=== PATIENT | female | born 1995 | race Caucasian/White ===

== ENCOUNTER 2021-02-07 11:01 | Outpatient (RCR) | payer BC, SELFPAY ==
[2021-02-07] MEDS: RHO(D) IMMUNE GLOBULIN 300 MCG/2 ML SYRINGE IM (16:12)
== END 2021-05-08 23:59 | disposition home or self-care (01) ==
LOC: ANHLAB 11:01
PROVIDERS: Visit Provider Student in an Organized Health Care Education/Training Program
DX: Z29.13 Encounter for prophylactic Rho(D) immune globulin (principal); O36.0190 Maternal care for anti-D [Rh] antibodies, unspecified trimester, not applicable or unspecified; Z3A.00 Weeks of gestation of pregnancy not specified
CPT/HCPCS: 36415; 85461; 90384; 96372; J2790

== ENCOUNTER 2021-04-04 00:15 | Inpatient (IN) | payer BC, SELFPAY ==
[2021-04-04] VITALS (154 sets, daily range): BP systolic 92–144; BP diastolic 52–108; PULSE 51–129; TEMP 36.4–37.1; O2SAT 69–100; BMI 25.7
--- NOTE | 2021-04-04 00:41 | LDADM ---
This patient, Irena Kohler, was admitted to Labor/Delivery/Recovery 104 on 04/04/21 at 00:15. Plans for labor, pain management and were discussed with patient. Patient/family oriented to hospital policies and general routines including ID bracelet, bed and alarms, visiting hours, pain management, procedures, bathroom and other care routines, personal items, smoking policy, room service/diet and guest tray routines, infant security routines, and visiting hours. Patient/Family are encouraged to report perceived risks to care and to ask questions if they do not understand what they are told or what they should do. See OBIX for further documentation.
[2021-04-04] MEDS: miSOPROStol 25 MCG TABLET VAGINAL ×2 (00:56→05:16)
[2021-04-04 00:59] LABS: Basophils Percent Auto 0.3 % (0.2-1.2); Eosinophils Absolute Auto 0.4 K/mm3 (0-0.3); Eosinophils Percent Auto 3.7 % (0-4.4); Hematocrit 35.4 % (37.0-47.0); Hemoglobin 12.3 g/dL (12.0-15.0); Immature Granulocyte Absolute 0.04 K/mm3 (0.00-0.031); Immature Granulocyte Percent A 0.4 % (0-0.5); Lymphocytes Absolute Auto 2.25 K/mm3 (0.9-3.2); Lymphocytes Percent Auto 19.8 % (18.3-44.2); Mean Corpuscular HGB Conc 34.7 g/dl (32-36); Mean Corpuscular Volume 92.2 fl (80-100); Mean Platelet Volume 10.4 fl (7.4-10.4); Monocytes Absolute Auto 0.8 K/mm3 (0.1-0.6); Monocytes Percent Auto 7.4 % (2.6-8.5); Neutrophils Absolute Auto 7.8 K/mm3 (1.3-6.7); Neutrophils Percent Auto 68.4 % (45.5-73.1); Platelet Count Result 191 k/mm3 (150-375); Red Blood Count 3.84 M/mm3 (4.2-5.4); Red Cell Distribution Width 12.4 % (11.5-14.5); White Blood Count 11.3 K/mm3 (4.5-10.0)
--- NOTE | 2021-04-04 07:13 | P.HPUP_ITS ---
History and Physical Update Update Date/Time: 04/04/21 07:13 25 yo at 39w3d who presents for elective IOL. she endorses good FM. she denies any regular contractions, vaginal bleeding or leakage of fluid. History and Physical has been reviewed, including an updated exam of the patien t. There are NO changes in the patient's condition. Risks, benefits, and alternatives have been discussed and questions answered. Patient agrees to proceed with procedure. A/P: 25 yo at 39w3d who presents for elective IOL admit to L&D routine admission orders Rh-, will need rhogam PP GBS neg FHT cat 1 plan for cytotec IOL continuous EFM
--- NOTE | 2021-04-04 09:15 | WPDANESEPP ---
Anes - Eval Pre Procedure Procedure: labor epidural Date/Time: 04/04/21 09:15 Pre Op Diagnosis: Induction Patient Data Age: 25 Gender: F Height: 1.7 m Weight: 74.5 kg Last Vital Signs Temp 36.7 C 04/04/21 07:30 Pulse 69 04/04/21 08:00 BP 129/85 04/04/21 08:00 Allergies Allergy/AdvReac Type Severity Reaction Status Date / Time No Known Allergies Allergy Mild Verified 11/05/10 15:28 Home Medications Medication Instructions Recorded Confirmed Type PNV cmb#95-ferrous fumarate-FA 1 tablet PO DAILY 03/10/21 03/10/21 History [] ergocalciferol (vitamin D2) 1,250 mcg PO WEEKLY 03/10/21 03/10/21 History [Vitamin D2] Laboratory Tests 04/04/21 04/04/21 04/04/21 00:48 00:48 00:48 WBC 11.3 K/mm3 H K/mm3 (4.5-10.0) RBC 3.84 M/mm3 L M/mm3 (4.2-5.4) Hgb 12.3 g/dL g/dL (12.0-15.0) Hct 35.4 % L % (37.0-47.0) MCV 92.2 fl fl (80-100) MCH 32.0 pg pg (26-34) MCHC 34.7 g/dl g/dl (32-36) RDW 12.4 % % (11.5-14.5) Plt Count 191 k/mm3 k/mm3 (150-375) MPV 10.4 fl fl (7.4-10.4) Immature Gran % (Auto) 0.4 % % (0-0.5) Neut % (Auto) 68.4 % % (45.5-73.1) Lymph % (Auto) 19.8 % % (18.3-44.2) [place] % (Auto) 7.4 % % (2.6-8.5) Eos % (Auto) 3.7 % % (0-4.4) Baso % (Auto) 0.3 % % (0.2-1.2) Lymph # (Auto) 2.25 K/mm3 K/mm3 (0.9-3.2) [place] # (Auto) 0.8 K/mm3 H K/mm3 (0.1-0.6) Eos # (Auto) 0.4 K/mm3 H K/mm3 (0-0.3) Baso # (Auto) 0.0 K/mm3 K/mm3 (0.0-0.1) Abs Immat Gran (auto) 0.04 K/mm3 H K/mm3 (0.00-0.031) Absolute Neuts (auto) 7.8 K/mm3 H K/mm3 (1.3-6.7) Absolute Nucleated RBC 0.0 K/mm3 K/mm3 (0.0-0.012) Nucleated RBC % 0.0 % % (0.0-0.2) RPR Pending Blood Type A Negative Antibody Screen Positive Antibody Identification Pending Antigen Identification Pending MINI, IgG Interpret Pending MINI, Poly Interpret Pending MINI, Complement Interp Pending Patient hx anesthesia problems: none Family hx anesthesia problems: none [facility] Family History Family History (Updated 03/10/21 @ 15:33 by Get López RN) Other No pertinent family history Social History Social History Smoking status: Never smoker Substance use: never Gender identity (if verbalized by the patient): Female Spiritual care concerns: No Exam Day of Procedure 04/04/21 09:15
--- NOTE | 2021-04-04 09:56 | PM.OBPNLAB ---
Pain Control Date/time seen: 04/04/21 09:56 Pain control: tolerating well Pelvic Exam Dilation (cm): 1 Effacement (%): 50 station: -3 Amniotic membrane status: Intact Contractions Contraction pattern: Regular Status status: Category l Assessment and Plan Assessment: induction ongoing Plan: begin patient augmentation (will start pitocin) Comments: cervical monahan catheter placed with 50 mL of saline. catheter put on traction
[2021-04-04] MEDS: LACTATED RINGERS 1,000 ML 125 ML IV CONT ×2 (10:03→13:39)
[2021-04-04 10:05] LABS: Rapid Plasma Reagin Non-Reactive (NonReactive)
[2021-04-04] MEDS: fentaNYL CITRATE INJ (*CRX) 100 MCG/2 ML VIAL 50 MCG IV PUSH (10:08)
--- NOTE | 2021-04-04 12:31 | PM.OBPNLAB ---
Pain Control Date/time seen: 04/04/21 12:31 Pelvic Exam Dilation (cm): 5 Effacement (%): 80 station: -3 Amniotic membrane status: Intact Contractions Contraction pattern: Regular Status status: Category l Assessment and Plan Assessment: induction ongoing Comments: AROM for clear fluid
[2021-04-04] MEDS: FAMOTIDINE 20 MG/2 ML VIAL IV PUSH (15:37)
--- NOTE | 2021-04-04 16:19 | PM.OBPNLAB ---
Pain Control Date/time seen: 04/04/21 16:19 Pain control: tolerating well and epidural Pelvic Exam Dilation (cm): 6 Effacement (%): 80 station: -2 Amniotic membrane status: Ruptured Contractions Contraction pattern: Regular Status status: Category ll Comments: recurrent late decels, mod variability, occasional acceleration Assessment and Plan Assessment: induction ongoing Comments: pitocin d/c for now, O2 supplementation being administered. will give IVF bolus. pt repositioned to right side with peanut ball. will continue to monitor.
[2021-04-04] MEDS: ONDANSETRON INJ 4 MG/2 ML VIAL IV PUSH (17:26)
--- NOTE | 2021-04-04 21:35 | PM.OBPRVD ---
OB - Delivery Note Procedure Procedure: Patient pushed for a spontaneous vaginal delivery. The fetus was delivered atraumatically and placed on the maternal abdomen. The cord was clamped and cut after 1 minute of life. The cord was double clamped and cut and a segment of cord was collected for cord gases. Cord blood was collected for blood type and Coomb's testing. The placenta delivered spontaneously and was noted to be intact. The perineum was inspected and there was a 1st degree perineal laceration. The laceration was repaired with 3-0 vicryl in the usual fashion. The uterus was firm and good hemostasis was noted. The patient and fetus were stable in the delivery room. Intrapartal events: None Induction method: per misoprostol protocol Delivery augmentation: rupture of membranes and pitocin Delivery monitor: external FHT Route of delivery: Episiotomy description: None Laceration Description: Perineal - 1st Degree Delivery repair: vicryl Specimen: No Quantitative Blood Loss (ml): 200 Anesthesia type: Epidural Disposition: floor () Complications: No immediate complications [place] Baby Date of : 04/04/21 Time of : 21:19 Weeks of gestation at delivery: 39 gender: Male Weight (pounds): 7 Weight (ounces): 12 presentation: vertex position: Right Occiput Anterior Placenta delivery description: Spontaneous cord vessel description: 3 Vessels score one minute: 8 score five minutes: 9
[2021-04-04] MEDS: OXYTOCIN 30 UNITS/NS 500 ML 30 UNITS/500 ML BAG 125 UNITS IV CONT (22:05)
[2021-04-04] MEDS: BENZOCAINE 20% AER SPR (*SP) 56 GM CAN 1 SPRAY TOPICAL (23:21)
[2021-04-04] MEDS: WITCH HAZEL 40 PADS 1 PAD TOPICAL (23:21)
[2021-04-04] MEDS: IBUPROFEN 600 MG TABLET PO (23:22)
[2021-04-05] VITALS (8 sets, daily range): BP systolic 108–131; BP diastolic 61–87; PULSE 66–77; RESP 16–18; TEMP 36.6–37; O2SAT 99–100
--- NOTE | 2021-04-05 00:55 | OBPPTRN ---
Patient transferred to post room #287 via wheelchair. Support person present. Oriented to unit, room, information board, rooming in, admission packet and security measures. Patient verbalizes understanding.
[2021-04-05 05:59] LABS: Hematocrit 30.8 % (37.0-47.0); Hemoglobin 10.7 g/dL (12.0-15.0)
--- NOTE | 2021-04-05 06:43 | P.PNOB_ITS ---
OB - PN: Subj Subjective Date/time seen: 04/05/21 06:43 Patient comments: no complaints, pain well controlled and tolerating diet [place] feeding status: exclusively breast feeding Narrative: patient doing well this AM. No complaints. Pain is well controlled. She reports minimal bleeding. She is ambulating and voiding without difficulty. She is tolerating PO. She denies N/V, fever, chills. OB - PN: Obj Data Labs CBC & Chem 7: 04/05/21 05:20 Labs: Laboratory Results - last 24 hr 04/04/21 04/04/21 04/05/21 00:48 00:48 05:20 Hgb 10.7 L Hct 30.8 L RPR Non-reactive Antibody Identification Passive Due to RH Imm Glob Antigen Identification Cancelled MINI, IgG Interpret Not Performed MINI, Poly Interpret Negative MINI, Complement Interp Not Performed OB - PN A/P Plan day: 1 Plan: routine care Comments: patient doing well H/H 07/08 plan for infant circumcision today. risks, benefits and alternatives discussed. consent obtained continue routine care Time Spent With Patient Time: Total time spent is greater than 50% in coordination of care (as documented) at patient's floor/unit and/or counseling patient: Time with patient: less than 15 minutes Review of Systems Review of Systems: All systems reviewed & are unremarkable except as noted in HPI and below Exam Const: General: comfortable and no acute distress Resp: Effort & Inspection: normal respiratory effort Cardio: Rate: regular rate GI: GI Palp: Yes Soft to palpation and No Tenderness to palpation present (GI) Auscultation: normal bowel sounds Other: fundus firm and below umbilicus. Psych: Affect: normal affect
--- NOTE | 2021-04-05 07:50 | WPDANLDPN2 ---
Anes-Prog Note L&D Date/Time: 04/05/21 07:50 Comfortable throughout: labor and delivery Neuraxial method: epidural Epidural/Spinal procedure site: clean & non-tender Neuro status: Neuro function grossly intact. Cardiovascular status: normal Respiratory status: normal Airway patency: baseline Mental status: baseline Post-Op hydration status: normal Vital Signs: Last Vital Signs Temp 36.6 C 04/05/21 04:00 Pulse 69 04/05/21 04:00 Resp 18 04/05/21 04:00 BP 117/61 04/05/21 04:00 Pulse Ox 74 L 04/04/21 21:20 Pain score (VAS): 0 I/O: Intake & Output 04/04/21 04/04/21 04/05/21 15:59 23:59 07:59 Intake Total 1000 1500 Output Total 193 Balance 1000 1307 Post-procedural complaints: none Patient feedback: Patient satisfied with anesthetic care.
--- NOTE | 2021-04-05 07:51 | WPDANLDPN2 ---
Anes-Prog Note L&D Date/Time: 04/05/21 07:51 Comfortable throughout: labor and delivery Neuraxial method: epidural Epidural/Spinal procedure site: clean & non-tender Neuro status: Neuro function grossly intact. Cardiovascular status: normal Respiratory status: normal Airway patency: baseline Mental status: baseline Post-Op hydration status: normal Vital Signs: Last Vital Signs Temp 36.6 C 04/05/21 04:00 Pulse 69 04/05/21 04:00 Resp 18 04/05/21 04:00 BP 117/61 04/05/21 04:00 Pulse Ox 74 L 04/04/21 21:20 I/O: Intake & Output 04/04/21 04/04/21 04/05/21 15:59 23:59 07:59 Intake Total 1000 1500 Output Total 193 Balance 1000 1307 Post-procedural complaints: none Patient feedback: Patient satisfied with anesthetic care.
--- NOTE | 2021-04-05 07:56 | WPDANLDPN2 ---
Anes-Prog Note L&D Date/Time: 04/05/21 07:56 Comfortable throughout: labor and delivery Neuraxial method: epidural Epidural/Spinal procedure site: clean & non-tender Neuro status: Neuro function grossly intact. Cardiovascular status: normal Respiratory status: normal Airway patency: baseline Mental status: baseline Post-Op hydration status: normal Vital Signs: Last Vital Signs Temp 36.6 C 04/05/21 04:00 Pulse 69 04/05/21 04:00 Resp 18 04/05/21 04:00 BP 117/61 04/05/21 04:00 Pulse Ox 74 L 04/04/21 21:20 Pain score (VAS): 0 I/O: Intake & Output 04/04/21 04/04/21 04/05/21 15:59 23:59 07:59 Intake Total 1000 1500 Output Total 193 Balance 1000 1307 Post-procedural complaints: none Patient feedback: Patient satisfied with anesthetic care.
--- NOTE | 2021-04-05 08:45 | PC.NURSE ---
Mother called out for assist with feeding. Carolyn reports infant had a large spit up and was unsure if she should feed or wait. Suggested mother feed , now 3 hours from last feeding is able to freely thrust tongue past gum ridge and flange both lips. Skin is intact on both nipples, no redness and bruising noted. Reviewed feeding cues, frequencies, duration of feedings, feeding elimination flow sheet, and signs of adequate intake. Demonstrated stimulation techniques to wake infant for feeding. Assisted with to breast. Reviewed positioning/alignment in cross cradle, holding breast in ?U? hold and guided asymmetrical latch on. Discussed rational for each. able to latch correctly. nursed eagerly, with steady draws and frequent swallowing noted. Suggested mother stimulate while feeding to increase stimulate, increase intake and to assist with maintaining deep latch. Reviewed signs of a correct latch, effective nursing and suck swallow ratio. would slip to shallow latch, mother reports tenderness. Demonstrated how to adjust latch more deeply while feeding. Mother reports she can feel change in latch and has no tenderness. Nipple care reviewed of lanolin after feedings, warm compresses as needed. Instructed mother to call out for RN assistance if she is unable to latch for feeding or she has discomfort with nursing.
[2021-04-05] MEDS: IBUPROFEN 600 MG TABLET PO (15:23)
--- NOTE | 2021-04-06 06:34 | PM.OBDSVD ---
DS: Admitting Diagnosis Admitting Diagnosis intrauterine at term OB - DS: Summary OB Procedures : None OB Procedures Intrapartum: Spontaneous Vag Delivery OB Procedures: : None Status at Discharge Functional status at discharge: independent ambulation Overall status at discharge: patient is back to baseline Time Spent with Patient Time attestation: Total time spent providing and/or coordinating discharge services: Time spent: Less than 30 minutes Exam Const: General: comfortable and no acute distress Resp: Effort & Inspection: normal respiratory effort Auscultation: clear to auscultation bilaterally Cardio: Rate: regular rate GI: GI Palp: Yes Soft to palpation Auscultation: normal bowel sounds Other: Fundus firm below umbilicus Psych: Appearance: grossly normal Mental Status: mental status grossly normal Affect: normal affect DS: Data Data Completed and Pending Labs on day of discharge: Labs from last 24 hours 04/05/21 04/04/21 04/04/21 05:20 00:48 00:48 Hgb 10.7 L Hct 30.8 L RPR Non-reactive Antibody Identification Passive Due to RH Imm Glob Antigen Identification Cancelled MINI, IgG Interpret Not Performed MINI, Poly Interpret Negative MINI, Complement Interp Not Performed Discharge Plan Discharge Discharging Clinician: Tc Barnett Patient Disposition: Home, Self-Care Activity: as tolerated and pelvic rest Diet: regular Discharge Instructions: call or return for temperature >100.4, bleeding >2 pads/hr for 2 hrs, pain not controlled with medications, signs/symptoms of mastitis Patient Instructions: Antibiotic Form, Vaginal Delivery (DC) Stand Alone Forms: General Discharge Information Follow-up/Referrals: Tc Barnett MD [Physician] - 4 Weeks Discharge Medications: New acetaminophen [Mapap (acetaminophen)] 325 mg Tablet 650 mg PO Q6H PRN (Reason: Mild Pain (1-3) Or Headache) Qty: 30 RF: 0 ibuprofen 600 mg Tablet 600 mg PO Q6H PRN (Reason: Cramping) Qty: 30 RF: 0 Continued PNV cmb#95-ferrous fumarate-FA [] 28 mg iron- 800 mcg Tablet 1 tablet PO DAILY RF: 0 Discontinued ergocalciferol (vitamin D2) [Vitamin D2] 1,250 mcg (50,000 unit) Capsule 1,250 mcg PO WEEKLY RF: 0 Date of admission: 07/27/21 00:15 Primary Care Provider: PHYSICIAN,MARKET RESEARCH CONSULTANT Admitting Provider: Tc Barnett Attending physician on admission: Tc Barnett Condition: Stable
[2021-04-06 07:50] VITALS: BP 131/79; PULSE 86; RESP 16; TEMP 36.8; O2SAT 96
--- NOTE | 2021-04-06 09:00 | PC.NURSE ---
Observed mother is able to independently latch with appropriate positioning/alignment. She reports slight nipple discomfort, is feeding as required and waking to feed if needed. Stressed to hold breast for latch and and during feeding to assist with maintaining deep latch. Mother reported latch more comfortable once holding in U hold. Infant has had at least 8 effective feedings in the past 24 hours, and is currently meeting outcomes for weight, output, jaundice and feeding frequencies. Mother states she feels confident to continue effective at home. Reviewed transition to breast milk, signs of adequate intake, and engorgement/relief. Instructed to call ICP if intake/output less than required. Reviewed regular medications mother is taking. Information provided per [place]. Reviewed community resources on the [facility] website and in the Mom/Baby guide. Information on outpatient services provided. Mother has no further questions at this time.
[2021-04-06 10:30] VITALS: PULSE 86; RESP 16; O2SAT 96
[2021-04-06] MEDS: IBUPROFEN 600 MG TABLET PO (10:34)
[2021-04-07 11:31] VITALS: BP 122/79; PULSE 70; RESP 20; TEMP 37.1; O2SAT 100
== END 2021-04-06 12:25 | disposition home or self-care (01) | DRG 807 ==
LOC: ANHLDR 00:19 → ANHOB2 04-05 01:30
PROVIDERS: Admitting Provider Student in an Organized Health Care Education/Training Program; Visit Provider Student in an Organized Health Care Education/Training Program
DX: O36.8330 Maternal care for abnormalities of the fetal heart rate or rhythm, third trimester, not applicable or unspecified (principal); Z37.0 Single live birth; Z3A.39 39 weeks gestation of pregnancy; O70.0 First degree perineal laceration during delivery
CPT/HCPCS: 36415; 85014; 85018; 85025; 86592; 86850; 86880; 86900; 86901; 86902; A9270; J2405; J2590; J2795; J3010; J7120

== ENCOUNTER 2022-09-21 12:14 | Outpatient (CLI) | payer BC, SELFPAY ==
[2022-09-22] MEDS: RHO(D) IMMUNE GLOBULIN 300 MCG/2 ML SYRINGE IM (11:58)
== END 2022-09-21 12:15 | disposition home or self-care (01) ==
PROVIDERS: Visit Provider Obstetrics & Gynecology
DX: Z34.90 Encounter for supervision of normal pregnancy, unspecified, unspecified trimester (principal); Z3A.00 Weeks of gestation of pregnancy not specified
CPT/HCPCS: 36415; 85461; 86850; 86900; 86901; 90384; 96372; J2790

== ENCOUNTER 2022-12-10 16:16 | Outpatient (RCR) | payer BC, OTHER, SELFPAY ==
[2022-09-24 16:20] VITALS: BP 115/68; PULSE 98
--- NOTE | ~2022-12-10 | US_ITS ---
EXAMINATION: US OB follow up w [facility] DATE: 12/10/2022 22:27 INDICATION: Amniotic fluid index assessment, biophysical profile, and estimated weight during t hird trimester TECHNIQUE: Real-time pelvic ultrasound was performed. The interpreting radiologist was not present fo r the study. COMPARISON: None. FINDINGS: There is a single living fetus in vertex presentation. The placenta is lateral/posterior. heart rate is 144 beats per minute (bpm). The amniotic fluid index is 14.3 cm which is normal (normal rang e: 7.1 cm to 21.4 cm). Biophysical profile performed by the technologist: breathing (30 sec sustained breathing in 30 minutes): 2 out of 2 movement (3 gross body movements in 30 minutes): 2 out of 2 tone (one episode of nhqptmh-mzrhuldxc-cclrrfs limb movement): 2 out of 2 Amniotic fluid pocket (2 cm): 2 out of 2 Total score: 8 out of 8 IMPRESSION: 1. Single living fetus in vertex presentation. 2. Biophysical profile 8 out of 8. Reviewed, dictated and finalized at location L.
[2022-12-10 17:27] VITALS: BP 110/74; PULSE 76
== END 2022-12-23 23:59 | disposition home or self-care (01) ==
LOC: ANHOBOP 16:16
PROVIDERS: Visit Provider Obstetrics & Gynecology
DX: O36.8130 Decreased fetal movements, third trimester, not applicable or unspecified (principal); Z3A.29 29 weeks gestation of pregnancy; O48.0 Post-term pregnancy; Z3A.40 40 weeks gestation of pregnancy
CPT/HCPCS: 59025; 76816; 76819

== ENCOUNTER 2022-12-12 15:58 | Inpatient (IN) | payer OTHER, SELFPAY ==
[2022-12-12] VITALS (8 sets, daily range): BP systolic 114–132; BP diastolic 73–91; PULSE 61–90; TEMP 36.1; BMI 24.1
--- NOTE | 2022-12-12 16:42 | LDADM ---
This patient, Irena Kohler, was admitted to Labor/Delivery/Recovery 103 on 12/12/22 at 15:58. Plans for labor, pain management and were discussed with patient. Patient/family oriented to hospital policies and general routines including ID bracelet, bed and alarms, visiting hours, pain management, procedures, bathroom and other care routines, personal items, smoking policy, room service/diet and guest tray routines, infant security routines, and visiting hours. Patient/Family are encouraged to report perceived risks to care and to ask questions if they do not understand what they are told or what they should do. See OBIX for further documentation.
[2022-12-12 16:45] LABS: Basophils Absolute Auto 0.1 K/mm3 (0.0-0.1); Basophils Percent Auto 0.5 % (0.2-1.2); Eosinophils Absolute Auto 0.3 K/mm3 (0-0.3); Eosinophils Percent Auto 2.5 % (0-4.4); Hematocrit 36.9 % (37.0-47.0); Hemoglobin 12.9 g/dL (12.0-15.0); Immature Granulocyte Absolute 0.05 K/mm3 (0.00-0.031); Immature Granulocyte Percent A 0.4 % (0-0.5); Lymphocytes Absolute Auto 2.02 K/mm3 (0.9-3.2); Lymphocytes Percent Auto 17.8 % (18.3-44.2); Mean Corpuscular Hemoglobin 32.7 pg (26-34); Mean Corpuscular Volume 93.4 fl (80-100); Mean Platelet Volume 10.4 fl (7.4-10.4); Monocytes Absolute Auto 0.8 K/mm3 (0.1-0.6); Monocytes Percent Auto 6.7 % (2.6-8.5); Neutrophils Absolute Auto 8.2 K/mm3 (1.3-6.7); Neutrophils Percent Auto 72.1 % (45.5-73.1); Platelet Count Result 197 k/mm3 (150-375); Red Blood Count 3.95 M/mm3 (4.2-5.4); Red Cell Distribution Width 12.8 % (11.5-14.5); White Blood Count 11.4 K/mm3 (4.5-10.0)
[2022-12-12] MEDS: DINOPROSTONE 10 MG VAG INSERT VAGINAL (16:55)
--- NOTE | 2022-12-12 21:45 | WPDANESEPPF ---
Anes - Initial Pre Proc Eval Procedure: Labor epidural Date/Time: 12/12/22 21:45 Surgeon: Edgar Rutherford MD Pre Op Diagnosis: Labor pain Pre Op Diagnosis: IOL Patient Data Age: 27 Gender: F Height: 1.7 m Weight: 70 kg Last Vital Signs Pulse 72 12/12/22 18:54 BP 123/77 12/12/22 18:54 O2 Del Method Room Air 12/12/22 16:42 Allergies Allergy/AdvReac Type Severity Reaction Status Date / Time No Known Allergies Allergy Mild Verified 11/05/10 15:28 Home Medications Medication Instructions Recorded Confirmed Type vit no.95-ferrous 1 tablet PO DAILY 03/10/21 11/21/22 History fumarate 28 mg-folic acid 800 mcg tablet () Laboratory Tests 12/12/22 12/12/22 12/12/22 16:17 16:17 16:17 WBC 11.4 K/mm3 H K/mm3 (4.5-10.0) RBC 3.95 M/mm3 L M/mm3 (4.2-5.4) Hgb 12.9 g/dL g/dL (12.0-15.0) Hct 36.9 % L % (37.0-47.0) MCV 93.4 fl fl (80-100) MCH 32.7 pg pg (26-34) MCHC 35.0 g/dl g/dl (32-36) RDW 12.8 % % (11.5-14.5) Plt Count 197 k/mm3 k/mm3 (150-375) MPV 10.4 fl fl (7.4-10.4) Immature Gran % (Auto) 0.4 % % (0-0.5) Neut % (Auto) 72.1 % % (45.5-73.1) Lymph % (Auto) 17.8 % L % (18.3-44.2) Stearns % (Auto) 6.7 % % (2.6-8.5) Eos % (Auto) 2.5 % % (0-4.4) Baso % (Auto) 0.5 % % (0.2-1.2) Lymph # (Auto) 2.02 K/mm3 K/mm3 (0.9-3.2) Stearns # (Auto) 0.8 K/mm3 H K/mm3 (0.1-0.6) Eos # (Auto) 0.3 K/mm3 K/mm3 (0-0.3) Baso # (Auto) 0.1 K/mm3 K/mm3 (0.0-0.1) Abs Immat Gran (auto) 0.05 K/mm3 H K/mm3 (0.00-0.031) Absolute Neuts (auto) 8.2 K/mm3 H K/mm3 (1.3-6.7) Absolute Nucleated RBC 0.0 K/mm3 K/mm3 (0.0-0.012) Nucleated RBC % 0.0 % % (0.0-0.2) RPR Pending Blood Type A Negative Antibody Screen Positive Antibody Identification Inconclusive Antigen Identification Cancelled MINI, IgG Interpret Not Performed MINI, Poly Interpret Neg MINI, Complement Interp Not Performed Patient hx anesthesia problems: none Family hx anesthesia problems: none Results Review: All pre-operative results and documents have been reviewed as part of the pre-operative evaluation. [facility] Family History Family History Other No pertinent family history Social History Social History Smoking status: Never smoker Substance use: never Lack of Transportation: No Lack of Food: Never True Current Housing: I Have Housing Concerned About Future Housing: No Difficulty Paying Gas/Electric Bills: No Difficulty Paying for Meds: No Currently Unemployed: No Education: Bachelor's Degree Difficulty w/ Childcare or Family Care: No Gender identity (if verbalized by the patient): Female Spiritual care concerns: No Anes - Eval Final PreProcedure Day of Procedure 12/12/22 21:45 Patient weight: normal Heart: regular rate and rhythm Lungs: clear to auscultation Airway: Mallampati scale class II Neurological: alert and oriented ASA classification: II Emergent: no Anesthetic plan: proceed Anesthesia type and monitoring: regional spinal Results Review: All pre-operative results and documents have been reviewed as part of the pre-operative evaluation. Informed Consent: The patient's anesthetic plan and its attendant risks and benefits were discussed with the patient/family/POA. Questions were solicited and answers provided to the satisfaction of the patient/family/POA.
[2022-12-13] VITALS (86 sets, daily range): BP systolic 98–154; BP diastolic 25–128; PULSE 52–125; RESP 16–18; TEMP 36.9–37.4; O2SAT 97–100
[2022-12-13] MEDS: LACTATED RINGERS 1,000 ML 125 ML IV CONT ×2 (06:12→08:40)
[2022-12-13] MEDS: OXYTOCIN 30 UNITS/NS 500 ML 30 UNITS/500 ML BAG IV CONT (06:13)
--- NOTE | 2022-12-13 08:52 | WPDOBADMIT ---
Obstetrics - Admit Note Admission Note: record reviewed. Additions to the history and/or subsequent changes in the physical findings follow. 27 y/o at 40 3/7 weeks here for induction of labor. Cervidil overnight, has been withdrawn. Now comfortable with epidural. GBS neg. AVSS NST reactive TOCO: contractions every 3 min ABD soft, nontender, gravid, vertex EXT nontender Cervix 3/50/-2. AROM with clear fluid. A: IUP at term, desiring induction of labor. P: Oxytocin. Anticipate .
--- NOTE | 2022-12-13 11:27 | PM.OBPRVD ---
OB - Delivery Note Procedure Delivery date: 12/13/22 Procedure: Induction of labor with Induction method: Per Cervidil Protocol Delivery augmentation: Rupture of Membranes and Pitocin Delivery monitor: External FHT and External Uterine Route of delivery: Laceration Description: None Specimen: Yes (cord blood) Quantitative Blood Loss (ml): 110 Anesthesia type: Epidural Disposition: PACU Complications: None Narrative: 27 y/o at 40 4/7 weeks gestation who presented to the hospital for induction of labor. Cervidil was placed overnight, then withdrawn in the morning. Oxytocin was administered intravenously. Amniotomy was performed with return of clear fluid. She received an epidural for pain control. Her labor progressed and her cervix dilated completely. She pushed with good effort and delivered the 's head to the perineum. A loose nuchal cord was splinted and the body delivered. The cord was reduced. The nose and mouth were bulb suctioned. After a delay, the cord was clamped and cut. The infant was handed off the field. Cord blood was collected. The placenta delivered spontaneously and was grossly normal in appearance. The usual 3 vessel cord was noted. The perineum was intact. Needle and instrument counts were correct. The patient was taken to recovery room in stable condition. The infant went to the nursery in stable condition. I was present and scrubbed for the entire delivery. [place] Baby Date of : 12/13/22 Time of : 11:11 Weeks of gestation at delivery: 40 Infant gender: Female Weight (pounds): 7 Weight (ounces): 2 presentation: vertex position: Left Occiput Anterior Placenta delivery description: Spontaneous and Normal Configuration Cord Vessel Description: 3 Vessels, Nuchal Cord and Delayed Cord Clamping score one minute: 8 score five minutes: 9
--- NOTE | 2022-12-13 11:30 | PM.OBDSVD ---
DS: Admitting Diagnosis Discharge Date 12/14/22 Admitting Diagnosis IUP at 40 4/7 weeks DS: Discharge Diagnosis Discharge Diagnosis (1) (normal spontaneous vaginal delivery): Code(s): O80 - Encounter for full-term uncomplicated delivery Status: Acute OB - DS: Summary OB Procedures : None OB Procedures Intrapartum: Spontaneous Vag Delivery OB Procedures: : None Time Spent with Patient Time attestation: Total time spent providing and/or coordinating discharge services: DS: Data Data Completed and Pending Labs on day of discharge: Labs from last 24 hours 12/12/22 12/12/22 12/12/22 16:17 16:17 16:17 WBC 11.4 H RBC 3.95 L Hgb 12.9 Hct 36.9 L MCV 93.4 MCH 32.7 MCHC 35.0 RDW 12.8 Plt Count 197 MPV 10.4 Immature Gran % (Auto) 0.4 Neut % (Auto) 72.1 Lymph % (Auto) 17.8 L Menard % (Auto) 6.7 Eos % (Auto) 2.5 Baso % (Auto) 0.5 Lymph # (Auto) 2.02 Menard # (Auto) 0.8 H Eos # (Auto) 0.3 Baso # (Auto) 0.1 Abs Immat Gran (auto) 0.05 H Absolute Neuts (auto) 8.2 H Absolute Nucleated RBC 0.0 Nucleated RBC % 0.0 RPR Pending Blood Type A Negative Antibody Screen Positive Antibody Identification Inconclusive Antigen Identification Cancelled MINI, IgG Interpret Not Performed MINI, Poly Interpret Neg MINI, Complement Interp Not Performed Discharge Plan Discharge Attending physician on discharge: Edgar Rutherford Discharging Clinician: Edgar Rutherford Patient Disposition: Home, Self-Care Activity: pelvic rest Diet: regular Discharge Instructions: Call or return if temperature above 100.4? F, increased abdominal pain, increased vaginal bleeding or any new problems. Stand Alone Forms: General Discharge Information Follow-up/Referrals: Edgar Rutherford MD [Physician] - 6 Weeks Discharge Medications: New ibuprofen 600 mg tablet 600 mg PO Q6H PRN (Reason: cramps) Qty: 30 0RF Continued PNV cmb#95-ferrous fumarate-FA [] 28 mg iron- 800 mcg Tablet 1 tablet PO DAILY Date of admission: 12/12/22 15:58 Primary Care Provider: PHYSICIAN,[employer] TENDER Admitting Provider: Edgar Rutherford Attending physician on admission: Edgar Rutherford Condition: Stable
[2022-12-13] MEDS: OXYTOCIN 30 UNITS/NS 500 ML 30 UNITS/500 ML BAG 125 UNITS IV CONT (11:47)
[2022-12-13] MEDS: WITCH HAZEL 40 PADS 1 PAD TOPICAL (13:42)
--- NOTE | 2022-12-13 14:05 | OBPPTRN ---
Patient transferred to post room #278 via wheelchair. Support person present. Oriented to unit, room, information board, rooming in, admission packet and security measures. Patient verbalizes understanding.
[2022-12-13 15:09] LABS: Rapid Plasma Reagin Non-Reactive (NonReactive)
[2022-12-13] MEDS: DOCUSATE SODIUM 100 MG CAPSULE PO (16:31)
[2022-12-14] MEDS: IBUPROFEN 600 MG TABLET PO ×2 (00:19→08:29)
[2022-12-14 03:00] VITALS: BP 94/59; PULSE 78; RESP 16; TEMP 36.6
[2022-12-14 04:35] LABS: Hematocrit 37.8 % (37.0-47.0)
--- NOTE | 2022-12-14 07:13 | WPDANLDPN2 ---
Anes-Prog Note L&D Date/Time: 12/14/22 07:13 Comfortable throughout: labor and delivery Neuraxial method: epidural Epidural/Spinal procedure site: clean & non-tender Neuro status: Neuro function grossly intact. Cardiovascular status: normal Respiratory status: normal Airway patency: baseline Mental status: baseline Post-Op hydration status: normal Vital Signs: Last Vital Signs Temp 36.6 C 12/14/22 03:00 Pulse 78 12/14/22 03:00 Resp 16 12/14/22 03:00 BP 94/59 L 12/14/22 03:00 Pulse Ox 100 12/13/22 14:15 O2 Del Method Room Air 12/13/22 14:15 Pain score (VAS): 1 I/O: Intake & Output 12/13/22 12/13/22 12/14/22 15:59 23:59 07:59 Intake Total 1500 1100 Balance 1500 1100 Post-procedural complaints: none Patient feedback: Patient satisfied with anesthetic care.
[2022-12-14 07:55] VITALS: BP 114/71; PULSE 65; RESP 18; TEMP 37.1; O2SAT 99
[2022-12-14] MEDS: MULTIVIT/MIN/PREN/FOL AC/IRON TABLET 1 TAB PO (08:29)
[2022-12-14] MEDS: DOCUSATE SODIUM 100 MG CAPSULE PO (08:29)
--- NOTE | 2022-12-14 11:10 | PC.NURSE ---
Consulted with patient to assess needs related to . Mother led conversation with her experience with feeding baby so far. Mother denies any concerns. Reviewed frequencies of feeding 8-12 times in 24 hours (approximately 2-3 hours), duration of feedings, milk production, intake/output feeding sheet and signs of adequate intake encouraging swallowing at the breast. Mom reports no pain and that she able to hear swallowing at the breast. States she breastfed her son also. pages of mom and baby guide reviewed and flagged for patient and senior research consultant phone number circled. Mother voiced understanding of the education shared, mother encouraged to call to have next feeding assessed. Infant sleeping quietly in bassinet beside mom. Father also at bedside listening to education provided. Mother led the conversation with her experience and plan to feed her infant so far and her ability to independently latch optimally without discomfort. Reminded parents to use good handwashing technique to prevent infection. Mother is feeding appropriately for growth of infant and understands stimulating to eat if needed. has had appropriate feedings in the last 24 hours meets the outcomes for weight, output and jaundice at this time. Mother states she is confident to continue effectively her at home, when to call for assistance and denies any additional assistance or education at this time. Reinforced understanding of milk production, transition of milk, signs of adequate intake, transition of stool, prevention/relief of engorgement, community resource and when to call a provider using the resource of the mom and baby guide/[facility] website. Mother voiced understanding of the education shared. Reported to the primary RN.
--- NOTE | 2022-12-14 11:39 | PC.NURSE ---
Dr. Hu at bedside with . Provider discussed 24 hour testing with mom. I encouraged waking to feed every 2.5 hours and lots of skin to skin to encourage milk to come in. Also encouraged hand expression prior to feeding. Patient states understanding.
--- NOTE | 2022-12-14 11:57 | PM.OBPNVD ---
OB - PN: Subj Subjective Date/time seen: 12/14/22 11:57 Narrative: Pain OK. Would like to go home. OB - PN: Obj Data Labs 12/14/22 03:03 Labs: Laboratory Results - last 24 hr 12/12/22 12/14/22 16:17 03:03 Hgb 13.0 Hct 37.8 RPR Non-reactive OB - PN A/P Plan Comments: A: PPD#1, doing well. P: Home to f/u 6 weeks. Exam Psych: Other: AVSS ABD soft, nontender, fundus firm EXT nontender
[2022-12-17 11:25] VITALS: BP 114/78; PULSE 78; RESP 18; TEMP 37.3; O2SAT 99
== END 2022-12-14 13:25 | disposition home or self-care (01) | DRG 807 ==
LOC: ANHLDR 12-13 11:32 → ANHOB2 12-13 14:30
PROVIDERS: Admitting Provider Obstetrics & Gynecology; Visit Provider Obstetrics & Gynecology
DX: O69.81X0 Labor and delivery complicated by cord around neck, without compression, not applicable or unspecified (principal); Z37.0 Single live birth; Z3A.40 40 weeks gestation of pregnancy
CPT/HCPCS: 36415; 85014; 85018; 85025; 86592; 86850; 86880; 86900; 86901; 86902; A9270; J2590; J2795; J7120

== ENCOUNTER 2024-09-10 10:15 | Emergency (ER) | payer OTHER, SELFPAY ==
[2024-09-10 10:26] VITALS: BP 121/79; PULSE 134; RESP 20; TEMP 38.3; O2SAT 100
--- NOTE | 2024-09-10 10:28 | ED_ITS ---
HPI - URI/Sore Throat General Chief Complaint: Upper Respiratory Infection Stated Complaint: cough/fever/aches Time Seen by Provider: 09/10/24 10:28 Source: patient and RN notes reviewed Mode of arrival: ambulatory Limitations: no limitations History of Present Illness HPI Narrative: 29-year-old female presents with concern for 3 day history of cough, shortness of breath, general malaise. Reports she has been taking Tylenol. MD elicited complaint: cough Related Data Home Medications ?Medication ?Instructions ?Recorded ?Confirmed ?Last Taken ?Type vit no.95-ferrous 1 tablet PO DAILY 03/10/21 11/21/22 11/21/22 09:00 History fumarate 28 mg-folic acid 800 mcg tablet () Allergies Allergy/AdvReac Type Severity Reaction Status Date / Time No Known Allergies Allergy Mild Verified 09/10/24 10:26 Review of Systems Review of Systems: CONSTITUTIONAL: Reports malaise, chills, sweats, or fever. EYES: Denies visual changes, redness, or discharge. ENT: Reports rhinorrhea, congestion, and sore throat. CARDIOVASCULAR: Denies chest pain, palpitations, or edema. RESPIRATORY: Reports cough. Denies dyspnea. GASTROINTESTINAL: Denies abdominal pain, nausea, vomiting, diarrhea SKIN: Denies rash or itching. MUSCULOSKELETAL: Reports myalgia. NEUROLOGIC: Reports headache. All systems reviewed & are unremarkable except as noted in HPI and below PMFSH Family History Family History Other No pertinent family history Social History Social History Smoking status: Never smoker Substance use: never Lack of Transportation: No Lack of Food: Never True Current Housing: I Have Housing Concerned About Future Housing: No Difficulty Paying Gas/Electric Bills: No Difficulty Paying for Meds: No Currently Unemployed: No Education: Bachelor's Degree Difficulty w/ Childcare or Family Care: No Gender identity (if verbalized by the patient): Female Spiritual care concerns: No Comments At time of signature, agree with nursing past medical, surgical, social and family history. There is no relevant family history pertinent to the presenting complaint Exam Narrative: GENERAL: Nontoxic-appearing, well-nourished, and in no acute distress. HEAD: Normocephalic EYES: PERRLA, conjunctivae clear ENT: Nares clear. Mucous membranes moist. TM pearly buchanan with dull light reflex bilaterally; no tragal tenderness. Oropharynx not erythematous without lesions. Tonsils not enlarged and without exudate, no drooling, no hoarseness, no trismus, uvula midline. NECK: Supple. No lymphadenopathy CHEST: Clear to auscultation, breath sounds equal. No wheezing, rhonchi, rales, or stridor. No respiratory distress, speaks in full sentences. HEART: Regular rate and rhythm. No murmur heard. SKIN: Warm, dry, no rash. NEURO: Alert and oriented x3. PSYCH: Normal mood and affect Course Course Emergency Course: Patient is aware of diagnosis, understands and agrees to treatment plan. Anticipatory guidance given. Patient agrees to follow-up as directed and is aware of reasons to seek care at the emergency department. Portions of this record may have been created with voice recognition software Level of Care: Express Care Visit Vital Signs Vital signs: Vital Signs Temperature 100.9 F H 09/10/24 10:26 Pulse Rate 134 H 09/10/24 10:26 Respiratory Rate 20 09/10/24 10:26 Blood Pressure 121/79 09/10/24 10:26 Pulse Oximetry 100 09/10/24 10:26 Oxygen Delivery Room Air 09/10/24 10:26 Temperature 100.9 F H 09/10/24 10:26 Pulse Rate 134 H 09/10/24 10:26 Respiratory Rate 20 09/10/24 10:26 Blood Pressure 121/79 09/10/24 10:26 Pulse Oximetry 100 09/10/24 10:26 Oxygen Delivery Room Air 09/10/24 10:26 Reviewed. MDM - URI/Sore Throat MDM Narrative Medical decision making narrative: Differential diagnosis considered: [place] virus, strep pharyngitis, allergic rhinitis, upper respiratory tract infection, sinusitis, rhinosinusitis, nasopharyngitis. viral pharyngitis, otitis media, otitis externa, pneumonia, bronchitis, viral cough syndrome, viral syndrome, and influenza. Exam findings show no acute concerns or changes; patient is non-toxic appearing and is in no distress. Patient is appropriate for outpatient treatment and follow-up. Lab Data Attestation: I reviewed the patient's lab results. Critical Care Time Critical Care Time Critical Care Time: No Discharge Plan Discharge Clinical Impression: Influenza A Patient Disposition: Home, Self-Care Condition: Stable Instructions: Influenza (ED) Additional Instructions: -Take strict precautions to prevent the spread of your virus. Be diligent about covering your cough (even when you are alone) and washing your hands frequently. -You may contagious until you have been symptom and/or fever free for 24 hours without fever reducing medicine -Alternate Ibuprofen and Tylenol for pain and fever relief (per package directions) -Some Cough medicines may make you drowsy, do not take it if you have to make important decisions, drive, or work. -Drink plenty of fluid - drink fluid with electrolytes such as Gatorade or other oral re-hydration solution. Avoid caffeine, which can make dehydration worse. -Get plenty of rest to help your body heal. -Use a cool mist humidifier for chest and nasal congestion. -Eat RAW honey or use cough drops to ease throat discomfort -Do not smoke or expose children to secondhand smoke -Wash your hands frequently. -Please follow-up with your primary care doctor in the next 1-2 days if your symptoms do not improve. -If you have any worsening of symptoms or any other concerns please go to the ED immediately. -Please take medications as prescribed and continue taking your home medications as usual. Patient Language: Occitan Prescriptions: New pseudoephedrine HCl [12 Hour Decongestant] 120 mg tablet extended release 120 mg PO Q12H PRN (Reason: nasal congestion) Qty: 20 0RF promethazine-DM 6.25-15 mg/5 mL syrup 5 ml PO Q4-6H PRN (Reason: cough) Qty: 120 0RF No Action PNV cmb#95-ferrous fumarate-FA [] 28 mg iron- 800 mcg Tablet 1 tablet PO DAILY ibuprofen 600 mg tablet 600 mg PO Q6H PRN (Reason: cramps) Qty: 30 0RF Follow-up/Referrals: Nirmala,ERIC Mendez [Primary Care Provider] - Time of Disposition: 10:34
[2024-09-10 10:43] LABS: EDCOVIDSCREEN Negative (Negative)
[2024-09-10 10:44] LABS: EDINFLUASCREEN Positive (Negative); EDINFLUBSCREEN Negative (Negative)
== END 2024-09-10 10:41 | disposition home or self-care (01) ==
PROVIDERS: Emergency Provider Nurse Practitioner; PCP Physician Assistant
DX: J10.1 Influenza due to other identified influenza virus with other respiratory manifestations (principal); Z20.822 Contact with and (suspected) exposure to COVID-19
CPT/HCPCS: 87426; 87804; 99213; G0463

== ENCOUNTER 2025-05-17 15:36 | Outpatient (RCR) | payer OTHER, SELFPAY ==
[2025-05-17 16:54] LABS: Hematocrit 32.5 % (37.0-47.0); Hemoglobin 11.0 g/dL (12.0-15.0); Mean Corpuscular HGB Conc 33.8 g/dl (32-36); Mean Corpuscular Hemoglobin 31.3 pg (26-34); Mean Corpuscular Volume 92.3 fl (80-100); Platelet Count Result 207 k/mm3 (150-375); Red Blood Count 3.52 M/mm3 (4.2-5.4); White Blood Count 10.9 K/mm3 (4.5-10.0)
[2025-05-17 17:20] LABS: Glucose 1 Hour PP 50gm Dose 132 mg/dL
[2025-05-17 17:50] LABS: Syphilis IgG/IgM Antibody Non-Reactive (Nonreactive)
[2025-05-17 18:01] LABS: HIV 1/2 Ab P24 Ag Result Negative (Negative)
[2025-05-19] MEDS: RHO(D) IMMUNE GLOBULIN 300 MCG/2 ML SYRINGE IM (16:16)
== END 2025-08-15 23:59 | disposition home or self-care (01) ==
LOC: ANHLAB 15:36
PROVIDERS: PCP Physician Assistant; Visit Provider Nurse Practitioner Obstetrics & Gynecology
DX: Z11.4 Encounter for screening for human immunodeficiency virus [HIV] (principal); Z11.3 Encounter for screening for infections with a predominantly sexual mode of transmission; Z3A.00 Weeks of gestation of pregnancy not specified
CPT/HCPCS: 36415; 82947; 85027; 85461; 86593; 86703; 86850; 86900; 86901; 90384; 96372; G0432; J2790

== ENCOUNTER 2025-07-23 15:13 | Inpatient (IN) | payer OTHER, SELFPAY ==
--- OUTSIDE RECORDS SUMMARY | 2021-08-24 02:00 | XMS_ITS | Continuity of Care Document ---
Author Organization [facility] Address [address] [place] [address] Phone Care Team Providers Care Gas Pumping Station Supervisor Name Role Phone Hannah PT, DPT, Savanna Unavailable Unavaila ble Procedures Procedure Date PT Re-evaluation Manual Therapy Therapeutic Exercise Therapeutic Activities Therapeutic Activities Manual Therapy Neuromuscular Re-Ed Therapeutic Activities Therapeutic Exercise Manual Therapy Therapeutic Exercise Therapeutic Activities Manual Therapy PT Evaluation Low Complexity Manual Therapy Therapeutic Exercise Therapeutic Activities Advance Directives Directive Yes / No Effective Date File Name No Information Encounters Encounter Description Practice Location Reason(s) For Visit Diagnoses Date Provider Providers Copied on Encounter [facility] [address], [place], [place], [id number], tel:[phone] [place] No Information Hannah Corrales. . Referring Provider: Access Direct. [facility] [address], [place], [place], [id number], tel:[phone] [place] No Information Hannah Romo . Referring Provider: [facility]. [facility], [place], [place], [id number], tel:[phone] [place] No Information Hannah Savanna. . Referring Provider: [facility]. [facility], [place], [place], [id number], tel:[phone] [place] No Information Hannah Savanna. . Referring Provider: [facility]. [facility] [place] [address], [place], [place], [id number], tel:[phone] [place] No Information Hannah Savanna. . Referring Provider: [facility]. Family History Family Member Type Diagnosis Age At Onset No Information Payers Payer name Insurance type Covered republican ID Yola angulo(s) [facility] [id number] Social History Type Description Quantity Date Captured Comments Alcohol Use Details Unknown Caffeine Use Details Unknown Tobacco Use Status Current non-smoker Smoking Status Never smoker Non-Smoking Tobacco Use Details : No Details Available : No Details Available Sex Female Chief Complaint And Reason For Visit No Information Reason For Referral Reason For Referral No Information History Of Present Illness Encounter Date Complaint History Of Prese nt Illness No Information Functional Status Date Functional Assessmen t No Information Instructions Date Instruction Additional Infor mation No Information Assessments Type Assessment Date No Information Patient Care Teams Name Effective Dates (start - stop) Status Members No Information
--- OUTSIDE RECORDS SUMMARY | 2021-08-24 02:00 | XMS_ITS | Continuity of Care Document ---
Author Organization [facility] Address [address] [place] [address] Phone Care Team Providers Care Performance Improvement Coordinator Name Role Phone Hannah PT, DPT, Savanna [...] Diagnoses Date Provider Providers Copied on Encounter [facility] [address], [place], [place], [id number], tel:[phone] [place] No Information Hannah Corrales. . Referring Provider: [facility]. [facility] [address], [place], [place], [id number], tel:[phone] [place] No Information Hannah Romo . Referring Provider: [facility]. [facility], [place], [place], [id number], tel:[phone] [place] No Information Hannah Savanna. . Referring Provider: [facility]. [facility], [place], [place], [id number], tel:[phone] [place] No Information Hannah Savanna. . Referring Provider: [facility]. [facility] [address], [place], [place], [id number], tel:[phone] [place] No Information Hannah Savanna. . Referring Provider: [facility]. Family History Family Member Type Diagnosis Age At Onset No Information Payers Payer name Insurance type Covered constitution party ID Yola angulo(s) [facility] [id number] Social History Type Description Quantity Date Captured [...]
--- OUTSIDE RECORDS SUMMARY | 2021-08-24 02:00 | XMS_ITS | Continuity of Care Document ---
Author Organization [facility] Address [address] [place] [address] Phone Care Team Providers Care Flyer Builder Name Role Phone Hannah PT, DPT, Savanna Unavailable Unavaila ble Procedures Procedure Date PT Re-evaluation Manual Therapy Therapeutic Exercise Therapeutic Activities Therapeutic Activities Manual Therapy Neuromuscular Re-Ed Therapeutic Activities Therapeutic Exercise Manual Therapy Therapeutic Exercise Therapeutic Activities Manual Therapy PT Evaluation Low Complexity Therapeutic Exercise Manual Therapy Therapeutic Activities Advance Directives Directive Yes / No Effective Date File Name No Information Encounters Encounter Description Practice Location Reason(s) For Visit Diagnoses Date Provider Providers Copied on Encounter [facility] [address], [place], [place], [id number], tel:[phone] [place] No Information Hannah Corrales. . Referring Provider: Access Direct. [facility] [address], [place], [place], [id number], tel:[phone] [place] No Information Hannah Romo . Referring Provider: Access Direct. [facility], [place], [place], [id number], tel:[phone] [place] No Information Hannah Savanna. . Referring Provider: Access Direct. [facility], [place], [place], [id number], tel:[phone] [place] No Information Hannah Savanna. . Referring Provider: [facility] Direct. [facility] [address], [place], [place], [id number], tel:[phone] [place] No Information Hannah Savanna. . Referring Provider: [facility]. Family History Family Member Type Diagnosis Age At Onset No Information Payers Payer name Insurance type Covered alliance party ID Yola angulo(s) [facility] [id number] Social History Type Description Quantity Date Captured [...]
[2025-07-23] VITALS (103 sets, daily range): BP systolic 89–142; BP diastolic 53–101; PULSE 68–125; TEMP 35.7; O2SAT 94–100; BMI 24.5
--- NOTE | 2025-07-23 15:48 | PM.IMHP ---
H&P: HPI History of Present Illness Date/Time: 07/23/25 15:48 Chief Complaint: contractions Narrative: Irena is a 30yo @ 39.2wks who presented to L&D with contractions. She was found to be 5-6cm dilated. No vaginal bleeding. She is having leakage of fluid since 0230 on 07/23/25. She reports good movement. She has had regular care. GBS negative. Rh negative. Review of Systems Constitutional: Constitutional: Denies chills, Denies fever(s) and Denies headache(s) Eyes: Eyes: Denies change in vision ENT: Denies headache(s) Cardiovascular: Cardiovascular: Denies chest pain and Denies dyspnea Respiratory: Respiratory: Denies dyspnea Genitourinary: Genitourinary: Denies abnormal vaginal bleeding and Denies vaginal discharge Neurologic: Denies headache(s) Psychiatric: Psychiatric: Denies anxiety and Denies depression [facility] Family History Family History Other No pertinent family history Social History Social History Smoking status: Never smoker Substance use: never Lack of Transportation: No Lack of Food: Never True Current Housing: I Have Housing Concerned About Future Housing: No Difficulty Paying Gas/Electric Bills: No Difficulty Paying for Meds: No Currently Unemployed: No Education: Bachelor's Degree Difficulty w/ Childcare or Family Care: No Gender identity (if verbalized by the patient): Female Spiritual care concerns: No Meds Home Medications and Allergies Home Medications ?Medication ?Instructions ?Recorded ?Confirmed ?Type vit no.95-ferrous 1 tablet PO DAILY 03/10/21 07/22/25 History fumarate 28 mg-folic acid 800 mcg tablet () Allergies Allergy/AdvReac Type Severity Reaction Status Date / Time No Known Allergies Allergy Mild Verified 07/23/25 16:22 Vital Signs Vital Signs - 24 hr 07/23/25 15:32 07/23/25 15:37 07/23/25 15:42 Pulse Oximetry 95 95 96 07/23/25 15:47 Pulse Oximetry 95 Exam Const: General: cooperative, healthy appearing and no acute distress Orientation/consciousness: patient oriented x3 Resp: Effort & Inspection: normal respiratory effort Cardio: Rate: regular rate GI: GI Palp: No abdominal tenderness : Other: FHT's: 120's/ mod tammy/ + accels/ no decels - cat 1 TOCO: ctxs q2-4min Cervix: 5/70/-3 Membranes: srom, clear 0230 07/23/25 Presentation: cephalic Skin: General skin exam: normal color Neuro: General: patient oriented x3 Extrem: General: normal to inspection Psych: Appearance: grossly normal Affect: normal affect Attitude: cooperative Assessment and Plan Assessment and plan (1) Active labor at term: Status: Acute (2) Spontaneous rupture of amniotic membranes: Status: Acute Plan - Admit L&D for labor; risks and benefits discussed - Anesthesia consult for epidural - Will then start low dose pitocin per protocol after epidural - Continuous monitoring - GBS neg, no current signs of infection
[2025-07-23] MEDS: LACTATED RINGERS 1,000 ML 125 ML IV CONT (15:59)
[2025-07-23 16:09] LABS: Hematocrit 31.9 % (37.0-47.0); Hemoglobin 10.9 g/dL (12.0-15.0); Immature Granulocyte Percent A 0.6 % (0-0.5); Lymphocytes Absolute Auto 1.30 K/mm3 (0.9-3.2); Mean Corpuscular HGB Conc 34.2 g/dl (32-36); Mean Corpuscular Hemoglobin 29.6 pg (26-34); Mean Corpuscular Volume 86.7 fl (80-100); Nucleated Red Blood Cells Absolute Auto 0.000 K/mm3 (0.0-0.012); Nucleated Red Blood Cells Perc 0.0 % (0.0-0.2); Platelet Count Result 212 k/mm3 (150-375); Red Blood Count 3.68 M/mm3 (4.2-5.4); White Blood Count 11.7 K/mm3 (4.5-10.0)
--- NOTE | 2025-07-23 16:22 | LDADM ---
This patient, Irena Kohler, was admitted to Labor/Delivery/Recovery 105 on 07/23/25 at 15:13. Plans for labor, pain management and were discussed with patient. Patient/family oriented to hospital policies and general routines including ID bracelet, bed and alarms, visiting hours, pain management, procedures, bathroom and other care routines, personal items, smoking policy, room service/diet and guest tray routines, infant security routines, and visiting hours. Patient/Family are encouraged to report perceived risks to care and to ask questions if they do not understand what they are told or what they should do. See [facility] for further documentation.
[2025-07-23 16:49] LABS: Syphilis IgG/IgM Antibody Non-Reactive (Nonreactive)
--- NOTE | 2025-07-23 17:13 | P.PNAN_ITS ---
Anes - Initial Pre Proc Eval Date/Time: 07/23/25 17:13 Surgeon: Edgar Rutherford MD Pre Op Diagnosis: labor Patient Data Age: 30 Gender: F Height: 1.7 m Weight: 71 kg Last Vital Signs Pulse 108 H 07/23/25 17:12 BP 126/71 07/23/25 17:12 Pulse Ox 100 07/23/25 17:10 O2 Del Method Room Air 07/23/25 16:21 Allergies Allergy/AdvReac Type Severity Reaction Status Date / Time No Known Allergies Allergy Mild Verified 07/23/25 16:22 Home Medications ?Medication ?Instructions ?Recorded ?Confirmed ?Type vit no.95-ferrous 1 tablet PO DAILY 03/10/21 07/22/25 History fumarate 28 mg-folic acid 800 mcg tablet () Laboratory Tests 07/23/25 15:57 WBC 11.7 H K/mm3 (4.5-10.0) RBC 3.68 L M/mm3 (4.2-5.4) Hgb 10.9 L g/dL (12.0-15.0) Hct 31.9 L % (37.0-47.0) MCV 86.7 fl (80-100) MCH 29.6 pg (26-34) MCHC 34.2 g/dl (32-36) RDW 12.6 % (11.5-14.5) Plt Count 212 k/mm3 (150-375) MPV 9.9 fl (7.4-10.4) Immature Gran % (Auto) 0.6 H % (0-0.5) Neut % (Auto) 80.0 H % (45.5-73.1) Lymph % (Auto) 11.1 L % (18.3-44.2) Wallace % (Auto) 7.4 % (2.6-8.5) Eos % (Auto) 0.7 % (0-4.4) Baso % (Auto) 0.2 % (0.2-1.2) Lymph # (Auto) 1.30 K/mm3 (0.9-3.2) Wallace # (Auto) 0.9 H K/mm3 (0.1-0.6) Eos # (Auto) 0.1 K/mm3 (0-0.3) Baso # (Auto) 0.0 K/mm3 (0.0-0.1) Abs Immat Gran (auto) 0.07 H K/mm3 (0.00-0.031) Absolute Neuts (auto) 9.3 H K/mm3 (1.3-6.7) Absolute Nucleated RBC 0.000 K/mm3 (0.0-0.012) Nucleated RBC % 0.0 % (0.0-0.2) Syphilis IgG/IgM Ab Non-reactive (Nonreactive) Blood Type A Negative Antibody Screen Pending Patient hx anesthesia problems: none Family hx anesthesia problems: none Results Review: All pre-operative results and documents have been reviewed as part of the pre- operative evaluation. [facility] Family History Family History Other No pertinent family history Social History Social History Smoking status: Never smoker Substance use: never Lack of Transportation: No Lack of Food: Never True Current Housing: I Have Housing Concerned About Future Housing: No Difficulty Paying Gas/Electric Bills: No Difficulty Paying for Meds: No Currently Unemployed: No Education: Bachelor's Degree Difficulty w/ Childcare or Family Care: No Gender identity (if verbalized by the patient): Female Spiritual care concerns: No Anes - Eval Final PreProcedure Day of Procedure 07/23/25 17:13 Patient weight: normal Heart: regular rate and rhythm Lungs: clear to auscultation Neurological: alert and oriented ASA classification: II Emergent: no Anesthetic plan: proceed Anesthesia type and monitoring: regional epidural and standard monitoring Results Review: All pre-operative results and documents have been reviewed as part of the pre- operative evaluation. Informed Consent: The patient's anesthetic plan and its attendant risks and benefits were discussed with the patient/family/POA. Questions were solicited and answers pro vided to the satisfaction of the patient/family/POA.
[2025-07-23] MEDS: OXYTOCIN 30 UNITS/NS 500 ML 30 UNITS/500 ML BAG IV CONT (18:26)
--- OUTSIDE RECORDS SUMMARY | 2025-07-23 19:50 | XMS_ITS | Clinical Summary ---
Author Organization [facility] Address [address] [place] [address] Care Team Providers Care Baffle Mounter Name Role Phone No, Physician Primary Care Provider [phone] Allergies No known active allergies Medications ibuprofen (ADVIL,MOTRIN) 400 mg tablet Take by mouth every 6 (six) hours as needed for pain. Active Active Problems Problem Noted Date Diagnosed Date Fracture of nasal bone 04/25/2015 Overview (12/13/2016): Nasal fractures Knee pain 08/20/2013 Osteochondritis dissecans 08/20/2013 Surgical History Surgery Date Site/Laterality Comments TONSILLECTOMY 09/09/1996 - 09/08/1997 Tonsillectomy KNEE SURGERY right Medical History Medical History Date Comments Hx Other Medical 2008 osteochondroma removal Family History Medical History Relation Name Comments Alcohol abuse Other 1 Family history of Alcoholism; Cancer Other 2 Family history of Cancer; Diabetes Other 3 Family history of Diabetes mellitus; Heart disease Other 4 Family history of Heart disease; Hypertension Other 5 Family history of Hypertension; Lung disease Other 6 Family history of Lung problems; Stroke Other 7 Family history of Stroke; Arthritis Other 8 Family history of Arthritis; Relation Name Status Comments Father Alive Mother Alive Other 1 Other 2 Other 3 Other 4 Other 5 Other 6 Other 7 Other 8 Social History Tobacco Use Types Packs/Day Years Used Date Smoking Tobacco: Never Smokeless Tobacco: Never Alcohol Use Standard Drinks/Week Comments Yes 0 (1 standard drink = 0.6 oz pur e alcohol) Exercise Vital Sign Answer Date Recorde d On average, how many days pe r week do you engage in moderate to strenuous exercise (like a brisk walk)? 6 days 11/02/2019 On average, how many minutes do you engage in exercise at this level? 120 min 11/02/2019 Comments No Sex and Gender Information Value Date Recorded Sex Assigned at Not on file Legal Sex Female 11:29 PM INVESTIGATIONS MANAGER Gender Identity Female 11/12/2019 6:40 AM INVESTIGATIONS MANAGER Sexual Orientation Straight 11/12/2019 6: 41 AM INVESTIGATIONS MANAGER Obstetrics History Para Term AB IAB SAB Ectopic Multiple Livin g Live Births 0 0 0 0 0 0 0 0 0 0 0 Last Filed Vital Signs Vital Sign Reading Time Taken Comments Blood Pressure 125/85 11/02/2019 9:03 AM INVESTIGATIONS MANAGER Pulse 64 10/29/2017 1:52 PM INVESTIGATIONS MANAGER Temperature - - Respiratory Rate - - Oxygen Saturation - - Inhaled Oxygen Concentration - - Weight 66 kg (145 lb 9.6 oz) 11/02/2019 9:03 AM INVESTIGATIONS MANAGER Height 170.2 cm (5' 7) 11/02/2019 9:03 AM INVESTIGATIONS MANAGER Body Mass Index 22.8 11/02/2019 9:03 AM INVESTIGATIONS MANAGER Plan of Treatment Not on file Insurance [facility] CHOICE PL[facility] CHOICE [facility] Address: [address] [place] [address] Care Teams Baffle Mounter Relationship Specialty Start Date End Date No, Physician PCP - General 10/28/17
--- NOTE | 2025-07-23 20:12 | PM.OBPNLAB ---
Pain Control Date/time seen: 07/23/25 20:12 Pain control: epidural Pelvic Exam Dilation (cm): 7 (.5) Effacement (%): 80 station: 0 Amniotic membrane status: Ruptured (SROM) Comments: forebag ruptured 2010 Contractions Monitor mode: External Contraction frequency: 2 (-3) Contraction pattern: Regular Status status: Category l Assessment and Plan Pitocin rate (mU/min): 4 Assessment: active labor Plan: continuous present management
--- NOTE | 2025-07-23 20:51 | PM.OBPRVD ---
OB - Vaginal Delivery Note Procedure Delivery date: 07/23/25 Delivery augmentation: Rupture of Membranes (/forebag) and Pitocin (6mU) Delivery monitor: External FHT and External Uterine Route of delivery: Episiotomy description: None Laceration Description: None Specimen: Yes (placenta) Quantitative Blood Loss (ml): 50 Anesthesia type: Epidural Disposition: Floor Complications: No immediate complications [place] Baby Date of : 07/23/25 Time of : 20:38 Gestational Age by Date: 39 (.2) Infant gender: Female Weight (pounds): 7 Weight (ounces): 15 presentation: vertex position: Right Occiput Anterior Placenta delivery description: Expressed Cord Vessel Description: 3 Vessels, Nuchal Cord, Tight and Clamped/Cut score one minute: 8 score five minutes: 9 Narrative: Irena rapidly progressed to complete dilation with strong desire to push. She pushed for 2 contractions and delivered the head over intact perineum. Tight nuchal cord was noted and was doubly clamped and cut. She easily delivered the infant's shoulders and body without complication. The infant was immediately placed skin to skin and was stimulated by the pediatric nurse was ultimately taken over to the warmer for further suctioning. A segment of cord was collected for cord gases. The remaining cord blood was collected for typing. With Pitocin running and gentle downward traction cord, the placenta delivered complication. Bimanual massage was performed and good uterine tone minimal bleeding was noted. She was examined and no lacerations were identified. Sponge, lap, instrument, and needle counts were correct at the end the procedure. Mom and baby were left bonding in the birthing suite in stable condition.
[2025-07-23] MEDS: OXYTOCIN 30 UNITS/NS 500 ML 30 UNITS/500 ML BAG 125 UNITS IV CONT (21:00)
--- NOTE | 2025-07-23 23:03 | S_PTH ---
PATIENT: Irena Kohler LOC: [facility] U#:[id number] AGE/SX: 30/F ROOM: 283 RE07/23/[address]: Mita Baron MD : [id number] BED: 00 DIS: 07/25/2025 SPEC #: [id number] RECD: 07/26/25 07:13 STATUS: ANGEL REQ #: [id number] SHASHA: 07/23/25 23:[address]: Mita Baron DEPT: [facility] Surgical RECD BY: Arlene Silva ENTERED: 07/26/25 07:14 SP TYPE: Surgical OTHR DR: MD Tod Huff, PA Tissues: A - Placenta Procedures: Hematoxylin and Eosin Stain Gross and Microscopic Level 5
[2025-07-23] MEDS: BENZOCAINE 20% AER SPR (*SP) 56 GM CAN 1 SPRAY TOPICAL (23:37)
[2025-07-23] MEDS: WITCH HAZEL 40 PADS 1 PAD TOPICAL (23:37)
[2025-07-24 00:20] VITALS: BP 116/76; PULSE 86; RESP 16; TEMP 36.5; O2SAT 98
[2025-07-24] MEDS: IBUPROFEN 600 MG TABLET PO ×3 (01:12→14:40)
[2025-07-24 04:50] VITALS: BP 113/75; PULSE 63; RESP 16; TEMP 36.6; O2SAT 99
[2025-07-24] MEDS: ACETAMINOPHEN 325 MG TABLET 650 MG PO ×2 (05:06→14:39)
[2025-07-24 05:37] LABS: Hematocrit 31.7 % (37.0-47.0); Hemoglobin 10.1 g/dL (12.0-15.0); Mean Corpuscular HGB Conc 31.9 g/dl (32-36); Mean Corpuscular Hemoglobin 28.9 pg (26-34); Mean Corpuscular Volume 90.6 fl (80-100); Platelet Count Result 196 k/mm3 (150-375); Red Blood Count 3.50 M/mm3 (4.2-5.4); White Blood Count 12.4 K/mm3 (4.5-10.0)
[2025-07-24] MEDS: MULTIVIT/MIN/PREN/FOL AC/IRON TABLET 1 TAB PO (08:07)
[2025-07-24 08:30] VITALS: BP 132/90; PULSE 69; RESP 18; TEMP 36.3; O2SAT 100
--- NOTE | 2025-07-24 08:53 | P.PNOB_ITS ---
OB - PN: Subj Subjective Date/time seen: 07/24/25 08:53 Narrative: PPD#1 Irena reports doing well today. Her bleeding is suspension cord tier. Her pain is controlled. She is tolerating regular diet, voiding, passing gas, and ambulating without issues. She is breast feeding. She would like to go home first thing tomorrow morning. OB - PN: Obj Data Labs 07/24/25 05:00 Labs: Laboratory Results - last 24 hr 07/23/25 07/24/25 15:57 05:00 WBC 11.7 H 12.4 H RBC 3.68 L 3.50 L Hgb 10.9 L 10.1 L Hct 31.9 L 31.7 L MCV 86.7 90.6 MCH 29.6 28.9 MCHC 34.2 31.9 L RDW 12.6 12.7 Plt Count 212 196 MPV 9.9 10.5 H Immature Gran % (Auto) 0.6 H Neut % (Auto) 80.0 H Lymph % (Auto) 11.1 L [place] % (Auto) 7.4 Eos % (Auto) 0.7 Baso % (Auto) 0.2 Lymph # (Auto) 1.30 [place] # (Auto) 0.9 H Eos # (Auto) 0.1 Baso # (Auto) 0.0 Abs Immat Gran (auto) 0.07 H Absolute Neuts (auto) 9.3 H Absolute Nucleated RBC 0.000 Nucleated RBC % 0.0 Syphilis IgG/IgM Ab Non-reactive Blood Type A Negative A Negative Antibody Screen Negative Negative OB - PN A/P Assessment and Plan (1) (normal spontaneous vaginal delivery): Code(s): O80 - Encounter for full-term uncomplicated delivery Status: Acute Plan day: 1 Plan: routine care Comments: - PO pain meds - Regular diet - Ambulation and hydration encouraged - Continue putting baby to breast q2-3hr - Pelvic rest; take meds as prescribed - ER return precautions: fever, n/v/abd pain, bleeding, HTN Time Spent With Patient Time: Total time spent is greater than 50% in coordination of care (as documented) at patient's floor/unit and/or counseling patient: Review of Systems 2 Constitutional: Constitutional: Denies chills, Denies fever(s) and Denies headache(s) Eyes: Eyes: Denies change in vision ENT: Denies dizziness and Denies headache(s) Cardiovascular: Cardiovascular: Denies chest pain, Denies palpitations and Denies dyspnea Respiratory: Respiratory: Denies cough and Denies dyspnea Gastrointestinal: Gastrointestinal: Denies nausea and Denies vomiting Neurologic: Denies dizziness and Denies headache(s) Endocrine: Endocrine: Denies palpitations Exam 2 Const: General: cooperative, comfortable and no acute distress O rientation/consciousness: patient oriented x3 Resp: Effort & Inspection: normal respiratory effort Auscultation: clear to auscultation bilaterally Cardio: Rate: regular rate GI: Inspection: non-distended GI Palp: No abdominal tenderness and Yes Soft to palpation Auscultation: normal bowel sounds : Other: fundus firm Skin: General skin exam: normal color Neuro: General: patient oriented x3 Extrem: General: normal to inspection Psych: Appearance: grossly normal Affect: normal affect Attitude: c ooperative
--- NOTE | 2025-07-24 13:22 | WPDANLDPN2 ---
Anes-Prog Note L&D Date/Time: 07/24/25 13:22 Comfortable throughout: labor and delivery Neuraxial method: epidural Epidural/Spinal procedure site: clean & non-tender Neuro status: Neuro function grossly intact. Cardiovascular status: normal Respiratory status: normal Airway patency: baseline Mental status: baseline Post-Op hydration status: normal Vital Signs: Last Vital Signs Temp 97.9 F 07/24/25 04:50 Pulse 63 07/24/25 04:50 Resp 16 07/24/25 04:50 BP 113/75 07/24/25 04:50 Pulse Ox 99 07/24/25 04:50 O2 Del Method Room Air 07/24/25 00:20 Pain score (VAS): 0 I/O: Intake & Output 07/23/25 07/24/25 07/24/25 23:59 07:59 15:59 Intake Total 500 Output Total 150 Balance 350 Post-procedural complaints: none Patient feedback: Patient satisfied with anesthetic care.
[2025-07-24 16:50] VITALS: BP 137/90; PULSE 78; RESP 18; TEMP 36.6; O2SAT 100
[2025-07-24 20:20] VITALS: BP 126/82; PULSE 73; RESP 16; TEMP 36.7; O2SAT 98
[2025-07-24] MEDS: RHO(D) IMMUNE GLOBULIN 300 MCG/2 ML SYRINGE IM (22:19)
--- NOTE | 2025-07-25 07:33 | PM.OBDSVD ---
DS: Admitting Diagnosis Discharge Date 07/25/25 Admitting Diagnosis SROM Active labor at term DS: Discharge Diagnosis Discharge Diagnosis (1) (normal spontaneous vaginal delivery): Code(s): O80 - Encounter for full-term uncomplicated delivery Status: Acute OB - DS: Summary OB Procedures : Ultrasound OB Procedures Intrapartum: Spontaneous Vag Delivery OB Procedures: : RHo (D) lg Peripartum Data Infant Delivery Method: Natural Vaginal Laceration Description: None Episiotomy description: None complications: none [place] 1: Gender: Female Disposition of : home Status at Discharge Functional status at discharge: independent ambulation Overall status at discharge: patient is back to baseline Time Spent with Patient Time attestation: Total time spent providing and/or coordinating discharge services: Exam Const: General: cooperative, healthy appearing, comfortable and no acute distress Orientation/consciousness: patient oriented x3 Resp: Effort & Inspection: normal respiratory effort Auscultation: clear to auscultation bilaterally Cardio: Rate: regular rate GI: Inspection: non-distended GI Palp: No abdominal tenderness and Yes Soft to palpation Auscultation: normal bowel sounds : Other: fundus firm Skin: General skin exam: normal color Neuro: General: patient oriented x3 Extrem: General: normal to inspection Psych: Appearance: grossly normal Affect: normal affect Attitude: cooperative DS: Data Data Completed and Pending Pending studies at discharge: Pending at discharge 07/23/25 23:03 Surgical [PTH] Routine Labs on day of discharge: Labs from last 24 hours 07/24/25 07/23/25 05:00 15:57 WBC 12.4 H 11.7 H RBC 3.50 L 3.68 L Hgb 10.1 L 10.9 L Hct 31.7 L 31.9 L MCV 90.6 86.7 MCH 28.9 29.6 MCHC 31.9 L 34.2 RDW 12.7 12.6 Plt Count 196 212 MPV 10.5 H 9.9 Immature Gran % (Auto) 0.6 H Neut % (Auto) 80.0 H Lymph % (Auto) 11.1 L [place] % (Auto) 7.4 Eos % (Auto) 0.7 Baso % (Auto) 0.2 Lymph # (Auto) 1.30 [place] # (Auto) 0.9 H Eos # (Auto) 0.1 Baso # (Auto) 0.0 Abs Immat Gran (auto) 0.07 H Absolute Neuts (auto) 9.3 H Absolute Nucleated RBC 0.000 Nucleated RBC % 0.0 Syphilis IgG/IgM Ab Non-reactive Blood Type A Negative A Negative Antibody Screen Negative Negative Screen Negative Baby's Blood Type B pos Baby's MINI Positive Doses of RhIg Required 1 Discharge Plan Discharge Attending physician on discharge: Mita Baron Discharging Clinician: Mita Baron Anticipated Discharge Date/Time: 07/25/25 08:00 Patient Disposition: Home Activity: may shower and pelvic rest Diet: regular Patient Instructions: Antibiotic Form Patient Language: Tajik Stand Alone Forms: General Discharge Information Follow-up/Referrals: Edgar Rutherford MD [Physician, [facility] [employer]] - Call for Appointment Discharge Medications: New acetaminophen 325 mg Tablet 650 mg PO Q6H PRN (Reason: Mild Pain (1-3) Or Headache) Qty: 60 0RF docusate sodium 100 mg Capsule 100 mg PO BID PRN (Reason: Constipation) Qty: 90 0RF ibuprofen 600 mg Tablet 600 mg PO Q6H PRN (Reason: Cramping) Qty: 40 0RF Continued PNV no.95-ferrous fumarate-FA [] 28 mg iron- 800 mcg Tablet 1 tablet PO DAILY Date of admission: 07/23/25 15:13 Primary Care Provider: Nirmala,Tod Auguste Admitting Provider: Edgar Rutherford Attending physician on admission: Edgar Rutherford Condition: Stable
[2025-07-25 08:30] VITALS: BP 126/88; PULSE 75; RESP 16; TEMP 36.6; O2SAT 100
[2025-07-26 09:55] VITALS: BP 123/72; PULSE 91; RESP 18; TEMP 36.6; O2SAT 100
== END 2025-07-25 11:56 | disposition home or self-care (01) | DRG 807 ==
LOC: ANHLDR 18:20 → ANHOB2 07-24 11:32 → ANHLDR 07-28 06:34 → ANHOB2 07-28 06:34
PROVIDERS: Admitting Provider Obstetrics & Gynecology; PCP Physician Assistant; Visit Provider Obstetrics & Gynecology
DX: O69.1XX0 Labor and delivery complicated by cord around neck, with compression, not applicable or unspecified (principal); Z37.0 Single live birth; Z3A.39 39 weeks gestation of pregnancy
CPT/HCPCS: 36415; 85025; 85027; 85461; 86593; 86850; 86900; 86901; 88307; 90384; A9270; J2590; J2790; J2795; J7120